=== PATIENT | male | born 1945 | race Caucasian/White ===

== ENCOUNTER 2022-12-02 12:16 | Emergency (ER) | payer OTHER, SELFPAY ==
[2022-12-02 12:17] VITALS: BP 102/71; PULSE 67; RESP 20; TEMP 35.8; O2SAT 98; BMI 25.2
[2022-12-02] MEDS: Heparin Injection (Vial) 5,000 UNIT/ML VIAL 4000 UNIT IV (12:19)
[2022-12-02] MEDS: TICAGRELOR 90 MG TABLET 180 MG PO (12:19)
[2022-12-02 12:21] VITALS: BP 102/71; PULSE 67; RESP 20; O2SAT 100
--- NOTE | 2022-12-02 12:22 | NURSING ---
1150 STEMI CALLED PRIOR TO ARRIVAL
--- NOTE | 2022-12-02 12:23 | NURSING ---
ICU 2 STEMI
--- NOTE | 2022-12-02 12:24 | EKG12_ITS ---
Test Reason : stemi Blood Pressure : / mmHG Vent. Rate : 067 BPM Atrial Rate : 067 BPM P-R Int : 144 ms QRS Dur : 098 ms QT Int : 426 ms P-R-T Axes : 062 -36 006 degrees QTc Int : 450 ms Normal sinus rhythm Left axis deviation ST elevation consider anterolateral injury or acute infarct ACUTE NM / STEMI Abnormal ECG No previous ECGs available Confirmed by PETR RENAE, DASHA ([id number]), field map editor JON HILLIARD ([id number]) on 12/12/2022 7:34:21 AM Referred By: Branden Saucedo Confirmed By:DASHA HUMPHREYS MD
--- NOTE | 2022-12-02 12:25 | EDS_ITS ---
HPI History of Present Illness Chief Complaint: Chest Pain Narrative Narrative: 77-year-old male past medical history of DVT/PE on Coumadin presents with chest pain that began approximately an hour ago. He states he went outside to feed the animals, and developed chest pain. According to EMS he came back inside, sat underneath a fan and was given cayenne pepper to see if it would help with his chest pain. He took nitroglycerin that was over 5 years old without relief of his symptoms. He became diaphoretic while he was at home. EMS administered fentanyl and Zofran. He was also administered 4 baby aspirin and nitroglycerin per EMS. Prehospital EKG shows ST elevation anterior laterally with 4 to [address] elevation mainly in V2 and V3 with reciprocal changes inferiorly. Code STEMI was activated prior to arrival. [facility] Medical History (Updated 12/02/22 @ 12:29 by Mandie Leon) Clotting disorder Allergy/AdvReac Type Severity Reaction Status Date / Time No Known Allergies Allergy Verified 12/02/22 12:25 Social History Smoking Status: Never smoker ROS ROS ED ROS Narrative Constitutional: No fever, no chills. Positive diaphoresis. HEENT: No sore throat. Mild neck pain. No loss of vision. No rhinorrhea. Cardiovascular: Positive chest pain. No palpitations. No pedal edema. Respiratory: No cough, no shortness of breath. Abdominal: No abdominal pain. No nausea. No vomiting. Genitourinary: No dysuria. No hematuria. Musculoskeletal: No myalgias. No arthralgias. Neurologic: No headaches. No dizziness. No lightheadedness. Skin: No rash. No change in color. Psychiatric: No depression. No anxiety. EXAM Physical Exam Narrative Exam Narrative: Afebrile. Vital signs noted. HEENT: Normocephalic. Atraumatic. PERRL, EOMI. Neck soft and supple. No point tenderness or step off. Cardiovascular: Regular rate and rhythm. No murmurs, rubs, or gallops appreciated. Respiratory: No tachypnea. Lungs clear to auscultation bilaterally. Gastrointestinal: Abdomen soft, nontender, with normoactive bowel sounds. No rebound or guarding. Neurological: Awake. Alert. Nonfocal, nonlateralizing. Skin: No rash. Normal color. No pallor. Musculoskeletal: No pedal edema. Full range of motion extremities. Const Vital Signs: 12/02/22 12:17 12/02/22 12:21 Temperature 96.4 F L Temperature Source Temporal Pulse Rate 67 Respiratory Rate 20 H 20 H Blood Pressure 102/71 102/71 Blood Pressure Mean 81 Pulse Ox 98 Oxygen Delivery Method Nasal Cannula Oxygen Flow Rate (L/min) 2 MDM MDM MDM Narrative Medical decision making narrative: Code STEMI was activated prehospital. EKG was obtained here in the emergency department which shows worsening ST elevation across the precordial leads with reciprocal changes inferiorly. Although the patient is on Coumadin, at the request of Dr. Saucedo with cardiology he will be given a 4000 unit bolus of heparin and Brilinta 180 mg orally. He will be taken to the It Technical Support Specialist for emergent percutaneous intervention. I discussed the patient with Dr. Gallagher for admission to the ICU status post heart catheterization. Disposition is admit in guarded condition. Management Discussion w/another healthcare provider: Hospitalist (Dr. Gallagher) and Fast Food Assistant Restaurant Manager (Dr. Saucedo, Cardiology) Critical Care Time Critical Care Time: Yes Critical care time (excluding procedures): 30-74 minutes (31), Including time spent:, Discussing w/Patient &/or Family/Corporate Recruiter, Discussing w/Consultants, Arranging Admission or Transfer and Performing Direct Patient Care at Bedside Discharge Plan Triage Chief Complaint: Chest Pain ED Provider: Michael Paulson Dx/Rx/DC Orders Primary Care Provider: Isaias Cisneros Referrals: Isaias Cisneros MD [Primary Care Provider] -
[2022-12-02 12:27] VITALS: BP 102/71; PULSE 64; RESP 20; O2SAT 100
--- NOTE | 2022-12-02 12:28 | HP.PCM.HOS_ITS ---
HPI - General HPI Narrative LANA BROOKE, is a 77 M who presents [facility] Allergy/AdvReac Type Severity Reaction Status Date / Time No Known Allergies Allergy Verified 12/02/22 12:25 Vital Signs Vital Signs Vital Signs: 12/02/22 12:17 12/02/22 12:21 Temperature 96.4 F L Temperature Source Temporal Pulse Rate 67 Respiratory Rate 20 H 20 H Blood Pressure 102/71 102/71 Blood Pressure Mean 81 Pulse Ox 98 Oxygen Delivery Method Nasal Cannula Oxygen Flow Rate (L/min) 2 Weight Weight: 79.9 kg Body Mass Index (BMI) 25.2
[2022-12-02 12:37] LABS: Absolute Neutrophil Count 19.4 X10^3/uL (2.0-7.7); Basophil# 0.36 X10^3/uL; Basophil% 1.6 % (0-1); Eosinophils% 1.7 % (0-5); Hematocrit 43.5 % (40-54); Hemoglobin 11.9 g/dL (13.0-16.5); Lymphocyte % 7.4 % (19-41); Mean Corp Hgb Conc 27.4 g/dL (32-36); Mean Corpuscular Volume 62.2 fL (80-94); Monocyte# 0.82 X10^3/uL; Monocyte% 3.6 % (0-10); NRBC Flagged by Analyzer 0 % (0-5); Neutrophil % 84.9 % (47-70); POSITIVE MORPHOLOGY YES; Platelet Count 370 K/mm3 (150-450); RBC Distribution Width CV 24.4 % (11.6-14.6); RBC Distribution Width SD 48.3 fl (35.1-43.9); Red Blood Count 6.99 M/mm3 (4.6-6.2); White Blood Count 22.9 K/mm3 (4.4-11.0)
[2022-12-02 12:39] LABS: Differential Indicated SCAN CRITERIA MET
--- NOTE | 2022-12-02 12:43 | ED.RN ---
THIS RN CALLED ICU AND GAVE REPORT TO ANA HOPE. AT 1243.
[2022-12-02 12:49] LABS: Anion Gap 5 (5-15); BUN 29 mg/dL (7-18); BUN/Creat Ratio 20.7 RATIO (10-20); Calcium,Total 8.5 mg/dL (8.5-10.1); Chloride 110 mmol/L (98-107); EST Glomerular Filtration Rate 52 mL/min (>60); Est Glom Filt Rate - Afr Amer 63 mL/min (>60); Estimated Creatinine Clearance 44.18 ml/min; Glucose 122 mg/dL (74-106); Sodium Level 140 mmol/L (136-145); Troponin-I HS 96 pg/mL (3.0-78.0)
[2022-12-02 12:52] LABS: International Normalized Ratio 2.1; Partial Thromboplast Time 33.7 Seconds (24.1-36.2); Prothrombin Time (Protime)PT. 23.7 SECONDS (11.7-14.9)
[2022-12-02 14:06] LABS: Anisocytosis 2+; Platelet Estimate SLT INC (ADEQ)
[2022-12-02 14:07] LABS: Hypochromasia 2+; Microcytosis 1+; Ovalocyte 1+; Poikilocytosis 1+
[2022-12-02 14:09] LABS: ACT Activated Clotting Time 221 sec (74-137)
--- NOTE | 2022-12-02 15:14 | PCIREPORT_ITS ---
PCI Cardiac Cath Report PCI Report: PCI cardiac cath report STEMI anterior With occluded proximal LAD; 1. Moderate sedation 2. Selective left coronary angiography 3. Selective right cholangiography 4. Successful PCI of the culprit proximal LAD occluded with ALEXANDRA 0 flow, predilatation, using escalating technique of the balloon Using 2 x 15 mm balloon followed by 2.5 x 15 mm followed by placement of drug- eluting stent 2.5 x 22 mm resolute [place] Postdilated with 2.75 x 15 mm NC balloon. Patient had single episode of A-fib converted to sinus with shock x1 No further episode of V-fib or V. tach noted and patient does not require amiodarone. And achievement of 10-20% post PCI stenosis and maintenance of ALEXANDRA-3 flow post PCI.] Heavily calcified mid LAD requiring longer time in the Assisted Living Housekeeper With the technique of guide liner and changing the plan to access from the right common femoral artery. 5. Access from the right radial using 6 Barbadian sheath. 6. Access from the right common femoral artery using 6 Barbadian sheath 7. Selective right common femoral artery angiography 8. Placement of Perclose to close the right common femoral artery arteriotomy site. Right radial sheath was left in place as patient urgently transferred to [facility]. Preprocedure diagnosis; 77-year-old patient presented with severe retrosternal chest pain and had been today while he was outside his house It was nauseated with severe retrosternal chest pain no specific radiation Patient brought to the ER at [facility] with EMS service. Noted patient had significant elevated ST segment in the anterolateral lead with lead I, aVL and V1 to V6. With a clinical diagnosis of STEMI with occluded LAD. Patient has no prior cardiac history However he was on Coumadin for DVT with INR on this presentation 2.1 Also had renal insufficiency with elevated creatinine. Consent; Risk and benefit of procedure explained detail patient agreed to proceed informed consent obtained. Diagnostic and interventional equipment used 1. 6 Barbadian sheath, right radial artery 2. 6 Barbadian sheath right common femoral artery 3. Diagnostic catheter 5 Barbadian JL 3.5, 5 Barbadian JR4 4. Interventional guide catheter 6 Barbadian JL 3.5, 6 Barbadian JL 4, guide liner 6 Barbadian. 5. 0.014 180 cm run-through extra floppy straight guidewire 6. 0.035 to 60 cm J exchange wire 7. 2 x 15 mm balloon 8. 2.5 x 50 mm Emerge balloon 9. 2.5 x 22 mm drug-eluting stent resolute [place]. 10. 2.75 x 15 mm NC balloon. Medication used in the Assisted Living Housekeeper Heparin IV 2. Brilinta was given in the ER 180 mg 3. Aspirin was given by the EMS service. Patient today took his Coumadin and INR result is 2.1 Procedure in detail; 76-year-old patient who presented with severe retrosternal chest pain brought by the EMS to [facility] ER I saw the patient and evaluated in the ER he still having severe retrosternal chest pain and review all his current medication and Patient was taken immediately to the Assisted Living Housekeeper for a STEMI/LAD with significant ST elevation noted in the LAD distribution We will proceed with a diagnostic and use GuideLiner as a support And eventually we were able to place a 2.5 x 22 mm drug-eluting stent, resolute [place], postdilated with 2.75 x 15 mm NC balloon And achieve ALEXANDRA-3 flow in the LAD. Symptoms of chest pain improved. Patient remained stable hemodynamically. ST segment elevation resolved. Patient was hypotensive and had an episode of V-fib prior to the PCI shocked 1 time in the Assisted Living Housekeeper And started on Yaron-Synephrine using 5 Barbadian JL 3.5 advanced ascending aorta cannulated the left main without difficulty multiple views of the left main system obtained Identified the culprit as occluded proximal LAD The new proceed with 6 Barbadian JR4 was [place] cannulated the RCA and multiple views of the RCA obtained Following this we proceed with interventional plan which is a complex plan due to the heavily calcified proximal and mid LAD with difficulty of passing the stent or the balloon 2.5 Therefore we proceed with right common femoral artery groin and proceed with the 6 Barbadian JL 4 Finding of coronary angiography 1. Left main is normal angiographically, bifurcating into LAD and left circumflex 2. Left anterior descending artery occluded proximally. Post PCI and stent of LAD is a large vessel reach all the way to the apex Abundant septal branches. 3. Left circumflex moderate-sized vessel with no significant atherosclerosis 4. RCA large dominant with nonobstructive proximal and mid round 10-20%. Hemodynamic regular 5 Barbadian JR4 diagnostic catheter was placed in the left ventricle and the patient went into V-fib requiring shock x1. Catheter was pulled back with no further recording of LVEDP. Cardiac care plan and recommendation: 1. Due to the calcified mid LAD in a patient who is very critical and being on Coumadin with calcified proximal/mid LAD And also concerned about the risk of in-stent thrombosis, I transferred the patient to [facility] cardiac center for observation where the night I discussed with the glassware maker demonstrator Patient was stable symptoms of chest pain improved and ST segment elevation resolved The blood pressure is a stable. No complication in the Assisted Living Housekeeper Branden Saucedo MD,FACC,[facility]
--- NOTE | 2022-12-02 15:34 | PCM.CONS.C ---
Assessment & Plan Assessment/Plan (1) ST elevation (STEMI) myocardial infarction: (2) Chest pain: PLAN: Plan 77-year-old patient With a large anterior AL/STEMI with cardiogenic shock in the ER his blood pressure was low systolic around 90 mmHg Symptoms started this morning with severe retrosternal chest pain, nauseated and given some Zofran heparin as well as Brilinta in the ER Patient was taken to the emergency to the Senior Policy Advisor Finding of cardiac catheterization identified the culprit lesion as occluded proximal LAD Underwent complex PCI of the proximal?mid LAD, heavily calcified present with difficulty of placing the drug-eluting stent Requiring use of guide liner as well as escalation of the wire from smaller to millimeter to 2.5 mm followed by the placement of drug-eluting stent successfully. And placed a drug-eluting stent 2.5 x 22 mm postdilated with 2.75 NC balloon [address] elevation and improvement of symptoms of chest pain ALEXANDRA-3 flow noted in the LAD Left main, left circumflex and RCA had no significant atherosclerosis. Patient transferred to a tertiary cardiac center [facility] as he was very unstable with large STEMI and cardiogenic shock His blood pressure remained stable on inotropic support he was given Yaron-Synephrine/norepinephrine/phenylephrine Patient transferred to [facility] for observation and monitoring Cardiac care plan recommendations; Patient will need project manager/design manager and take treated with Brilinta 90 mg twice daily in addition to low-dose aspirin for 1 year 1. Patient had history of DVT and has been on warfarin no enough information regarding the duration of need for the warfarin 2. Patient if he remained stable can follow-up with cardiology team at [facility]. . HPI Consult Data Date of Consult: 12/02/22 HPI Narrative Reason for Consultation: STEMI/large anterior AL HPI Narrative: LANA BROOKE, is a 77 M who presents [facility] Medical History (Updated 12/02/22 @ 12:31 by Michael Paulson MD) Clotting disorder Allergy/AdvReac Type Severity Reaction Status Date / Time No Known Allergies Allergy Verified 12/02/22 12:25 Social History Smoking Status: Never smoker ROS ROS Narrative 14 point review of system is unremarkable Apart from the current presentation with symptoms of severe retrosternal chest pain Clinical diagnosis of STEMI/large anterior AL. Physical Exam Cardio Cardio Narrative: Patient seen and examined in the ER along with ER physician Severe retrosternal chest pain Review all his current medication patient was on Coumadin he took warfarin this morning Patient was given heparin, aspirin as well as Brilinta Hypertensive systolic blood pressure 90 diastolic around 60 with cardiogenic shock Cardiac rhythm normal sinus Cardiovascular exam S1-S2 regular Chest exam is clear to auscultation. Risk Stratification Risk Stratification Applicable: Yes Age >/= 65: Yes >/= 3 CAD Risk Factors (HTN, HLD, DM, family hx of CAD, or current smoker): Yes Aspirin Use in the Past 7 Days: Yes Severe Angina (>/= episodes in 24 hours): Yes EKG ST Changes >/= 0.5mm: Yes Positive Cardiac Marker: Yes ALEXANDRA Risk Stratification Score: 6 ALEXANDRA % Risk: 41% Risk Objective Data Vital Signs: Vital Signs Temp Pulse Resp BP Pulse Ox O2 Del Method O2 Flow Rate 96.4 F L 64 20 H 102/71 100 Nasal Cannula 2 12/02/22 12:17 12/02/22 12:27 12/02/22 12:27 12/02/22 12:27 12/02/22 12:27 12/02/22 12:29 12/02/22 12:29 Oxygen Flow Rate (L/min) 2 Oxygen Delivery Method Nasal Cannula Weight: 176 lb 2.389 oz Body Mass Index (BMI) 25.2 Lab / Micro Data 12/02/22 12:20 12/02/22 12:20 Labs: Laboratory Results - last 24 hr 12/02/22 12:20: WBC 22.9 H, RBC 6.99 H, Hgb 11.9 L, Hct 43.5, MCV 62.2 L, MCH 17.0 L, MCHC 27.4 L, RDW Std Deviation 48.3 H, RDW Coeff of Orly 24.4 H, Plt Count 370, Immature Gran % (Auto) 0.800, Neut % (Auto) 84.9 H, Lymph % (Auto) 7.4 L, [place] % (Auto) 3.6, Eos % (Auto) 1.7, Baso % (Auto) 1.6 H, Absolute Neuts (auto) 19.4 H, Absolute Lymphs (auto) 1.70, Nucleated RBC % 0, Platelet Estimate SLT INC, Hypochromasia 2+, Poikilocytosis 1+, Anisocytosis 2+, Microcytosis 1+, Ovalocytes 1+, PT 23.7 H, INR 2.1, APTT 33.7, Sodium 140, Potassium 4.0, Chloride 110 H, Carbon Dioxide 25.0, Anion Gap 5, BUN 29 H, Creatinine 1.40 H, Estim Creat Clear Calc 44.18, Est GFR (MDRD) Af Amer 63, Est GFR (MDRD) Non-Af 52 L, BUN/Creatinine Ratio 20.7 H, Glucose 122 H, Calcium 8.5, Troponin I High Sens 96 H 12/02/22 12:42: Activated Clotting Time 221 H Cardiology Labs/Tests 12/02/22 12:20: WBC 22.9 H, RBC 6.99 H, Hgb 11.9 L, Hct 43.5, MCV 62.2 L, MCH 17.0 L, MCHC 27.4 L, Plt Count 370, Immature Gran % (Auto) 0.800, Neut % (Auto) 84.9 H, Lymph % (Auto) 7.4 L, [place] % (Auto) 3.6, Eos % (Auto) 1.7, Baso % (Auto) 1.6 H, Absolute Neuts (auto) 19.4 H, Nucleated RBC % 0, PT 23.7 H, INR 2.1, APTT 33.7, Sodium 140, Potassium 4.0, Chloride 110 H, Carbon Dioxide 25.0, Anion Gap 5, BUN 29 H, Creatinine 1.40 H, Est GFR (MDRD) Af Amer 63, Est GFR (MDRD) Non-Af 52 L, BUN/Creatinine Ratio 20.7 H, Glucose 122 H, Calcium 8.5 Rhythm: EKG: ECHO: Stress Test: Cardiac Cath: PCI: CT Surgery: Holter monitor: EPS: PPM: CXR: Chest CT Scan:
--- NOTE | 2022-12-04 09:04 | CRPHASE1_ITS ---
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 Our purpose is to help you have a full recovery and achieve the goals you set for yourself. Over the years many of our patients have returned to activities they assumed they would never do again! We can help restore your confidence and motivation to make lifestyle changes that can have a significant impact on your health and quality of life! We can help answer questions and concerns you may have about exercise, lifestyle, medications, diet, stress and anxiety which are common following a hospitalization. WE monitor ECG and vital signs during exercise and discuss your progress with you and report to your physician(s). Cardiac Rehab is proven to help reduce readmissions, improve functional capacity and lower recurrence of problems with your heart. Our Cardiac Rehab program is Certified by the [place] Association of Cardio-Vascular and Pulmonary Rehabilitation (AACVPR) and Accredited by the [place] College of Cardiology through our [facility]. You can contact us at . We invite you to call us with your questions or to get started in our program. If you have other questions or concerns be sure to ask your physician/provider during your follow-up visit. WE look forward to seeing you!
== END 2022-12-02 12:30 | disposition home or self-care (01) ==
PROVIDERS: Emergency Provider Emergency Medicine; PCP Family Medicine; Referring Provider Internal Medicine Interventional Cardiology; Visit Provider Emergency Medicine
DX: I21.09 ST elevation (STEMI) myocardial infarction involving other coronary artery of anterior wall (principal); Z79.01 Long term (current) use of anticoagulants; Z95.5 Presence of coronary angioplasty implant and graft; Z86.718 Personal history of other venous thrombosis and embolism
CPT/HCPCS: 80048; 84484; 85025; 85347; 85610; 85730; 92941; 93005; 93454; 96374; 99152; 99284; J7030; J7040; J7050; Q9967; A4216; C1725; C1760; C1769; C1874; C1887; C1894; C9606

== ENCOUNTER 2022-12-22 15:42 | Inpatient (IN) | payer OTHER, SELFPAY ==
[2022-12-22] VITALS (9 sets, daily range): BP systolic 108–140; BP diastolic 61–74; PULSE 63–82; RESP 15–18; TEMP 36.2–36.6; O2SAT 96–98; BMI 23.9; BMI 24.3
--- NOTE | 2022-12-22 16:03 | EKG12_ITS ---
Test Reason : SOB Blood Pressure : / mmHG Vent. Rate : 069 BPM Atrial Rate : 069 BPM P-R Int : 168 ms QRS Dur : 086 ms QT Int : 460 ms P-R-T Axes : 046 -45 120 degrees QTc Int : 492 ms Normal sinus rhythm Left anterior fascicular block Anteroseptal infarct , age undetermined T wave abnormality, consider lateral ischemia Abnormal ECG Confirmed by PETR RENAE, DASHA ([id number]), supervising film or videotape editor JON HILLIARD ([id number]) on 12/25/2022 1:09:36 PM Referred By: Confirmed By:DASHA HUMPHREYS MD
--- NOTE | 2022-12-22 16:04 | EDS_ITS ---
HPI History of Present Illness Chief Complaint: Shortness of Breath Informant: patient, spouse/S.O. and family Narrative Narrative: Patient presents with dyspnea. Patient had a significant heart attack on 02 December of this year. He had a stent done here but it was a severely calcified vessel so he was transferred up to [facility] for further observation. When there he developed more dyspnea. He had imaging that showed pulmonary edema and was placed on Lasix. There was also suspicion of pneumonia so he was started on antibiotics and finished his course of doxycycline. He also had hemoptysis with this and was treated with TXA and that stopped. He has had dyspnea ever since this. He is still coughing but no sputum production and he is no longer having hemoptysis since he was treated. He is on Coumadin. He has no known weight gain. No peripheral edema. He is not having chest pain. He saw retail gift card merchandising for this and was started on hydroxyzine as it was thought there was a component of anxiety. But he states that does not seem to help a lot. He states his appetite is just a little bit down but he still eating and drinking. [facility] Medical History Arteriosclerosis of coronary artery in patient with history of myocardial infarction (12/02/22) Cardiogenic shock (12/02/22) Clotting disorder Allergy/AdvReac Type Severity Reaction Status Date / Time amoxicillin Allergy Rash Verified 12/22/22 15:44 Surgical History Stented coronary artery (12/02/22) Social History Smoking Status: Never smoker ROS ROS ED Constitutional Constitutional ED: Denies chills, fever(s), sweats or weight loss Eyes Eyes: Denies blurry vision ENT ENT ED: Denies rhinorrhea or sore throat Cardiovascular Cardiovascular: Denies chest pain, palpitations or racing heartbeat Respiratory/Chest Respiratory/Chest: Reports cough and dyspnea Gastrointestinal Gastrointestinal: Denies melena, nausea or vomiting Genitourinary Genitourinary ED: Denies hematuria Musculoskeletal Musculoskeletal: Denies arthralgias Integumentary Denies rash Neurologic Neurologic: Denies headache(s) Endocrine Endocrinology: Denies polydipsia or polyuria Hematologic/Lymphatic Hematologic/Lymphatic: Reports easy bleeding and easy bruising Allergic/Immunologic Allergic/Immunologic ED: Denies urticaria EXAM Physical Exam Narrative Exam Narrative: CONSTITUTIONAL: Patient is nontoxic in appearance. The patient looks comfortable. Work of breathing looks normal. HEENT: No notable trauma. Mucous membranes moist. EYES: No conjunctival injection. No proptosis. NECK:No JVD seen. No stridor. CARDIOVASCULAR: Regular rate. Regular rhythm. No notable murmur. No JVD. He does not sound irregular. RESPIRATORY: No respiratory distress. Breathing is unlabored. No wheezes. No rhonchi. He does have a few crackles at the bases. No pain with a deep breath. No coughing while I am in the room. Oxygen level is normal at 98% on room air showing no hypoxia while sitting in the bed. GASTROINTESTINAL: Not distended. Bowel sounds are normal. No tenderness. No guarding. No rebound. No palpable mass. No bruit is heard. GENITOURINARY: No tenderness over the bladder. No CVA tenderness. MUSCULOSKELETAL: Atraumatic. No notable peripheral edema. No cord. No tenderness along the deep venous system. No asymmetry. No distended veins. NEUROLOGICAL: Patient is alert and appropriate. No focal deficit noted. SKIN: No noted rashes. No diaphoresis. No notable pallor. PSYCHIATRIC: Patient is calm. Mood is appropriate. Const Vital Signs: 12/22/22 15:43 12/22/22 15:44 12/22/22 16:14 Temperature 97.6 F L Temperature Source Temporal Pulse Rate 67 63 Respiratory Rate 18 16 Respiratory Effort Normal Non-Labored Respiratory Depth Normal Respiratory Pattern Normal Normal Blood Pressure 123/74 H Blood Pressure Mean 90 Pulse Ox 98 Oxygen Delivery Method Room Air Room Air MDM MDM MDM Narrative Medical decision making narrative: Management interpretation the patient's chest x-ray does show some effusions and increased markings base. Clinically this is more consistent with CHF than pneumonia. Final reading is similar. Patient's white count is up at 22,000 but it was up before. He is not having fevers. Hemoglobin is good. Platelets are just a little up. Patient's electrolytes show mild renal dysfunction but close to baseline. Patient's INR is slightly supratherapeutic at 4.4 but there is no clinical bleeding. Patient's troponin is high at 491 and this is a little over 2 weeks after his [place]. Patient is to be in PE as a levator it at 947 consistent with some degree of congestive heart failure. I discussed the case with cardiology, Dr. Ring. He agrees the patient should probably be brought in overnight. We will start diuresis. We will get echocardiogram. I have hospitalist on page. Lab Data Attestation: I reviewed the patient's lab results. Labs: Laboratory Results - last 24 hr 12/22/22 16:11 WBC 22.1 H RBC 6.65 H Hgb 11.7 L Hct 41.2 MCV 62.0 L MCH 17.6 L MCHC 28.4 L RDW Std Deviation 51.1 H RDW Coeff of Orly 25.2 H Plt Count 509 H MPV TNP Immature Gran % (Auto) 0.900 Neut % (Auto) 88.3 H Lymph % (Auto) 5.[address] [place] % (Auto) 2.7 Eos % (Auto) 1.4 Baso % (Auto) 1.3 H Absolute Neuts (auto) 19.5 H Absolute Lymphs (auto) 1.19 Nucleated RBC % 0 Differential Comment SCANNED PT 43.1 H INR 4.4 H* Sodium 138 Potassium 4.4 Chloride 106 Carbon Dioxide 28.0 Anion Gap 4 L BUN 25 H Creatinine 1.49 H Estim Creat Clear Calc 41.51 Est GFR (MDRD) Af Amer 58 L Est GFR (MDRD) Non-Af 48 L BUN/Creatinine Ratio 16.8 Glucose 97 Calcium 8.8 Troponin I High Sens 491 H* B-Natriuretic Peptide 947.8 H Radiography Diagnostic Testing: Clinical Impression(s) from Imaging Studies Chest X-Ray 12/22/22 16:35 IMPRESSION: There are bilateral pleural effusions. There are bilateral infiltrates. Electronically Signed: Anthony Caputo MD at 17:08 EDT , EKG Initial EKG: Comments: I independent her potation the patient's EKG shows a normal sinus rhythm with overall rate of 69. No ventricular ectopy. There is deep T wave inversion and Q waves anteriorly consistent with his recent anterior WY. But no acute ST elevation or depression. This is different than his EKG of 02 December but during that EKG he had an ST elevation WY and this does show what could be expected progress. Discharge Plan Triage Chief Complaint: Shortness of Breath ED Provider: Pedro Oliveira Dx/Rx/DC Orders Clinical Impression: Congestive heart failure, Dyspnea, Recent ST elevation myocardial infarction (STEMI), Non-ST elevation WY (NSTEMI), Warfarin-induced coagulopathy Primary Care Provider: Isaias Cisneros Referrals: Isaias Cisneros MD [Primary Care Provider] - Disposition Disposition: Acute Care Hospital [facility]
[2022-12-22] MEDS: Ipratropium/Albuterol Sulfate 3 ML AMPUL.NEB INHALATION (16:14)
[2022-12-22 16:24] LABS: Absolute Lymphocyte Count 1.19 X10^3/uL (0.83-4.51); Absolute Neutrophil Count 19.5 X10^3/uL (2.0-7.7); Basophil# 0.28 X10^3/uL; Basophil% 1.3 % (0-1); Eosinophil# 0.32 X10^3/uL; Eosinophils% 1.4 % (0-5); Hematocrit 41.2 % (40-54); Hemoglobin 11.7 g/dL (13.0-16.5); Lymphocyte # 1.19 X10^3/ul (0.83-4.51); Lymphocyte % 5.4 % (19-41); Mean Corp Hgb Conc 28.4 g/dL (32-36); Mean Corpuscular Hgb 17.6 pg (27.0-32.0); Monocyte# 0.59 X10^3/uL; Monocyte% 2.7 % (0-10); NRBC Flagged by Analyzer 0 % (0-5); Neutrophil # 19.54 X10^3/uL (2.7-7.7); Neutrophil % 88.3 % (47-70); POSITIVE MORPHOLOGY YES; Platelet Count 509 K/mm3 (150-450); RBC Distribution Width CV 25.2 % (11.6-14.6); RBC Distribution Width SD 51.1 fl (35.1-43.9); Red Blood Count 6.65 M/mm3 (4.6-6.2); White Blood Count 22.1 K/mm3 (4.4-11.0)
[2022-12-22 16:25] LABS: Differential Indicated SCAN CRITERIA MET
[2022-12-22 16:32] LABS: Prothrombin Time (Protime)PT. 43.1 SECONDS (11.7-14.9)
--- NOTE | 2022-12-22 16:35 | RAD_ITS ---
STUDY: XR Chest 2 Views 12/22/2022 4:35 PM REASON FOR EXAM: Male, 77 years old. SOB COMPARISON: None TECHNIQUE: XR Chest 2 Views FINDINGS: There are bilateral pleural effusions. There are bilateral infiltrates. Enlarged heart size. Normal mediastinum. Normal jodi. Prominent appearing increased interstitial lung markings. Normal visualized pulmonary arteries. There is atherosclerotic calcification of the aortic arch with tortuosity. There are diffuse degenerative changes of the visualized thoracic spine. There is degenerative osteoarthritis of the bilateral shoulders. There are no acute findings of the upper abdomen. RAD/Chest PA and Lateral IMPRESSION: There are bilateral pleural effusions. There are bilateral infiltrates. Electronically Signed: Anthony Caputo MD at 17:08 EDT ,
[2022-12-22 16:43] LABS: International Normalized Ratio 4.4
[2022-12-22 16:48] LABS: Anion Gap 4 (5-15); BUN 25 mg/dL (7-18); BUN/Creat Ratio 16.8 RATIO (10-20); Calcium,Total 8.8 mg/dL (8.5-10.1); Chloride 106 mmol/L (98-107); Creatinine, Serum 1.49 mg/dL (0.70-1.30); EST Glomerular Filtration Rate 48 mL/min (>60); Est Glom Filt Rate - Afr Amer 58 mL/min (>60); Estimated Creatinine Clearance 41.51 ml/min; Glucose 97 mg/dL (74-106); Potassium 4.4 mmol/L (3.5-5.1); Sodium Level 138 mmol/L (136-145); Troponin-I HS 491 pg/mL (3.0-78.0)
[2022-12-22 16:56] LABS: Differential Comment SCANNED
[2022-12-22 16:57] LABS: BNP,B-Type NATRIURETIC PEPTIDE 947.8 pg/mL (0-100)
[2022-12-22] MEDS: Furosemide 40 MG/4 ML Vial IV (17:39)
--- NOTE | 2022-12-22 17:41 | NURSING ---
RODRI COLEY CHF, ELEVATED TROP
--- NOTE | 2022-12-22 18:08 | HP.PCM.HOS_ITS ---
[facility] Date of Admission: 12/22/22 Date of Service: 12/22/22 Chief Complaint: Shortness of breath for few days intermittently mainly on exertion but sometimes at rest [facility] Narrative LANA BROOKE, is a 77 M who was transferred to [facility] after found to have anterior STEMI and cardiogenic shock in the ER, blood pressure low systolic 90s and had high risk complex PCI/stent of proximal mid LAD, heavily calcified vessel and then was transferred to [facility] on inotropic support. There he has treated for pneumonia and had some hemoptysis being on blood thinner therefore take cinnamic acid was given. Patient is still has cough mainly dry. At home, for last 1 week patient feels shortness of breath on exertion and occasionally even at rest. He sleeps in the recliner and feels he will get short of breath if he lays flat. Denies PND. He states he has been checking his weight and did not show increase in weight. Patient is on aspirin, Plavix and warfarin for history of DVT/PE and polycythemia vera. In ED his first troponin was found to be elevated along with BNP. Vitals in normal range. No hypoxia or tachypnea. Chest x-ray reviewed and shows hilar ejection increased interstitial lung markings and small bilateral pleural effusion. Twelve-lead EKG individually reviewed and shows normal sinus rhythm, LAFB 69 bpm, LAD. Did not worsen reviewed 20 V4. Previous EKG of December 02, [address] elevation V1 to V5 with 13% in lead II and aVF as mentioned above [facility] Medical History Arteriosclerosis of coronary artery in patient with history of myocardial infarction (12/02/22) Cardiogenic shock (12/02/22) Clotting disorder Home Medications aspirin 81 mg tablet,delayed release (Adult Aspirin Regimen) 81 mg PO DAILY 12/22/22 [History Last Taken Unknown] atorvastatin 80 mg tablet 80 mg PO DAILY 12/22/22 [History Last Taken Unknown] clopidogrel 75 mg tablet 75 mg PO DAILY 12/22/22 [History Last Taken Unknown] folic acid 1 mg tablet 1 mg PO DAILY 12/22/22 [History Last Taken Unknown] guaifenesin 1,200 mg tablet, extended release 12 hr (Mucinex) 600 mg PO BID 12/22/22 [History Last Taken Unknown] hydroxyzine HCl 25 mg tablet 25 mg PO Q6H PRN anxiety 12/22/22 [History Last Taken Unknown] metoprolol tartrate 50 mg tablet (Lopressor) 12.5 mg PO BID 12/22/22 [History Last Taken Unknown] warfarin 5 mg tablet 5 mg PO DAILY 12/22/22 [History Last Taken Unknown] Allergy/AdvReac Type Severity Reaction Status Date / Time amoxicillin Allergy Rash Verified 12/22/22 15:44 Surgical History Stented coronary artery (12/02/22) Social History Smoking Status: Never smoker ROS ROS Narrative Constitutional: Reports fatigue and weakness. No fever. HEENT: Reports systems reviewed and no addt'l complaints, except as documented Respiratory/Chest: Cough from previous admission as described in HPI. As described in HPI CVS: No new chest pain or pressure. Gastrointestinal: Denies coffee ground emesis, hematemesis or vomiting Genitourinary: Denies burning urination or new urinary tract symptoms Musculoskeletal: Denies acute joint pain or limited range of motion. No acute injury Neurologic: Denies seizure-like symptoms. skin: Multiple lumps in the skin chronic Endocrinology: Reports systems reviewed and no addt'l complaints, except as documented Hematologic/Lymphatic: Reports systems reviewed and no addt'l complaints, except as documented Rest 14 ROS are negative except as mentioned in HPI Vital Signs Vital Signs Vital Signs: 12/22/22 15:43 12/22/22 15:44 12/22/22 16:14 Temperature 97.6 F L Temperature Source Temporal Pulse Rate 67 63 Respiratory Rate 18 16 Respiratory Effort Normal Non-Labored Respiratory Depth Normal Respiratory Pattern Normal Normal Blood Pressure 123/74 H Blood Pressure Mean 90 Pulse Ox 98 Oxygen Delivery Method Room Air Room Air 12/22/22 17:38 12/22/22 17:37 Temperature 97.2 F L Temperature Source Temporal Pulse Rate 66 64 Respiratory Rate 15 17 Respiratory Effort Respiratory Depth Respiratory Pattern Blood Pressure 108/61 108/61 Blood Pressure Mean 76 76 Pulse Ox 96 96 Oxygen Delivery Method Room Air Room Air Weight Weight: 167 lb Body Mass Index (BMI) 23.9 Physical Exam Narrative General: Alert, Oriented x3, Cooperative HEENT: Atraumatic, PERRLA, EOMI, Normocephalic Oral: Oral mucosa dry. No Gingival or Mucosal Lesions/ Ulcerations Neck: Supple, No JVD, Negative Carotid Bruits Lungs: Air entry diminished in bilateral lung bases. Bilateral lower lung joya coarse crepitations present. No hypoxia/tachypnea Cardiovascular: Regular rate, Regular Rhythm, Normal S1, Normal S2, soft systolic murmur over LLSB Abdomen: Bowel Sounds Present, Soft, Non Tender, Non-Distended : No renal angle tenderness. No suprapubic tenderness. Extremities: Chronic left ankle edema from fracture in 1980s. Subtle edema in right ankle, Capillary Refill Less than 3 Seconds Skin: Multiple subcutaneous fatty lumps/multiple lipomas Musculoskeletal: No Tenderness to Palpation of Joints or Extremities. ROM int act and full. Neurological: Cranial nerves II-XII grossly intact, DTR 2+/4. No acute focal neurological deficit. Psych/Mental Status: Normal Affect, Appropriate. Results Lab / Micro Data 12/22/22 16:11 12/22/22 16:11 Labs: Laboratory Results - last 24 hr 12/22/22 16:11: WBC 22.1 H, RBC 6.65 H, Hgb 11.7 L, Hct 41.2, MCV 62.0 L, MCH 17.6 L, MCHC 28.4 L, RDW Std Deviation 51.1 H, RDW Coeff of Orly 25.2 H, Plt Count 509 H, MPV TNP, Immature Gran % (Auto) 0.900, Neut % (Auto) 88.3 H, Lymph % (Auto) 5.4 L, [place] % (Auto) 2.7, Eos % (Auto) 1.4, Baso % (Auto) 1.3 H, Absolute Neuts (auto) 19.5 H, Absolute Lymphs (auto) 1.19, Nucleated RBC % 0, Differential Comment SCANNED, PT 43.1 H, INR 4.4 H*, Sodium 138, Potassium 4.4, Chloride 106, Carbon Dioxide 28.0, Anion Gap 4 L, BUN 25 H, Creatinine 1.49 H, Estim Creat Clear Calc 41.51, Est GFR (MDRD) Af Amer 58 L, Est GFR (MDRD) Non-Af 48 L, BUN/Creatinine Ratio 16.8, Glucose 97, Calcium 8.8, Troponin I High Sens 491 H*, B-Natriuretic Peptide 947.8 H Radiology Impression Chest X-Ray 12/22/22 16:35 IMPRESSION: There are bilateral pleural effusions. There are bilateral infiltrates. Electronically Signed: Anthony Caputo MD at 17:08 EDT Reading Location ID and State: [facility] / [place] , Service support , Assessment & Plan Assessment/Plan (1) Acute on chronic HFrEF (heart failure with reduced ejection fraction): PLAN: Plan 1. Acute on chronic HFrEF: Patient is being admitted in PCU. Patient is started on IV Lasix 40 mg twice daily. First troponin 491. Cycle cardiac enzymes. Heart failure core measures including intake and output, fluid restriction less than 1500 mL, daily weight monitoring, kidney and electrolytes monitoring. ED physician reached out to car clerk pullman Dr. Ring. Cardiology consult Dr. Ring. Obtain 2D echo done in [facility]. On the discharge instruction from [facility], it is written patient had EF 38%. I think his cough is mainly due to CHF exacerbation therefore continue Mucinex DM. 2. Recent history of NSTEMI on December 02, 2022 complicated with cardiogenic shock and ventricular tachycardia. This time, elevated first troponin: May be due to acute myocardial injury from CHF exacerbation I doubt non-STEMI as patient does not have chest pressure or tightness like his STEMI he had in December 02 2022. Continue his cardiac medications aspirin, Plavix, beta-sahra metoprolol tartrate and atorvastatin 80 mg daily. Fasting lipid profile and TSH tomorrow AM. 3. History of DVT/PE, polycythemia vera on warfarin: Patient on warfarin 5 mg daily and will hold it as INR is supratherapeutic 4.4. 4. CKD stage IIIb probably due to cardiology visit: His BUNs/creatinine was elevated 29/1.4 on December 02, 2022. He still 25/1.49. Monitor kidney function electrolytes. Renal ultrasound ordered for tomorrow AM. VTE prophylaxis: Patient already on warfarin as mentioned above. Living will/advanced directive/end of life care: Patient does not have living will or advanced directive. His and eldest son is next of kin. After recent NSTEMI, cardiogenic shock and defibrillation he was hesitant for full code but is not decided yet. He said he wants only CPR but no intubation and ventilator, shock. I said his options are full code, DNR CC arrest with intubation or without intubation and DNRCC. After discussion of benefits/risks procedures involved with full code, DNR CC arrest and DNR CC, the patient with his family will discuss the option but for now full code. Patient does want artificial life support including intubation, tube feed, ventilator and/chest compression, central venous catheter, vasopressor and DC shock if needed Total time spent in [id number] encounter in discussion of advanced directive 17 minutes. Laboratory Results 12/22/22 16:11: WBC 22.1 H, RBC 6.65 H, Hgb 11.7 L, Hct 41.2, MCV 62.0 L, MCH 17.6 L, MCHC 28.4 L, RDW Std Deviation 51.1 H, RDW Coeff of Orly 25.2 H, Plt Count 509 H, MPV TNP, Immature Gran % (Auto) 0.900, Neut % (Auto) 88.3 H, Lymph % (Auto) 5.4 L, [place] % (Auto) 2.7, Eos % (Auto) 1.4, Baso % (Auto) 1.3 H, Absol laura Neuts (auto) 19.5 H, Absolute Lymphs (auto) 1.19, Nucleated RBC % 0, Differential Comment SCANNED, PT 43.1 H, INR 4.4 H*, Sodium 138, Potassium 4.4, Chloride 106, Carbon Dioxide 28.0, Anion Gap 4 L, BUN 25 H, Creatinine 1.49 H, Estim Creat Clear Calc 41.51, Est GFR (MDRD) Af Amer 58 L, Est GFR (MDRD) Non-Af 48 L, BUN/Creatinine Ratio 16.8, Glucose 97, Calcium 8.8, Troponin I High Sens 491 H*, B-Natriuretic Peptide 947.8 H Medications to take at Discharge aspirin 81 mg tablet,delayed release (Adult Aspirin Regimen) 81 mg PO DAILY 12/22/22 atorvastatin 80 mg tablet 80 mg PO DAILY 12/22/22 clopidogrel 75 mg tablet 75 mg PO DAILY 12/22/22 folic acid 1 mg tablet 1 mg PO DAILY 12/22/22 guaifenesin 1,200 mg tablet, extended release 12 hr (Mucinex) 600 mg PO BID 12/22/22 hydroxyzine HCl 25 mg tablet 25 mg PO Q6H PRN anxiety 12/22/22 metoprolol tartrate 50 mg tablet (Lopressor) 12.5 mg PO BID 12/22/22 warfarin 5 mg tablet 5 mg PO DAILY 12/22/22 Charges/Coding Visit Charges Inpatient E&M: 00193 Init Hosp L3 Procedures Hospitalists Procedures: 18321 Advncd Care Plan 30 Min
[2022-12-22 20:35] LABS: Troponin-I HS 518 pg/mL (3.0-78.0)
--- NOTE | 2022-12-22 20:40 | EKG12_ITS ---
Test Reason : CP Blood Pressure : / mmHG Vent. Rate : 061 BPM Atrial Rate : 061 BPM P-R Int : 150 ms QRS Dur : 090 ms QT Int : 520 ms P-R-T Axes : 047 -49 133 degrees QTc Int : 523 ms Normal sinus rhythm Low voltage QRS Left anterior fascicular block Recent anterior UT Confirmed by PETR RENAE, DASHA ([id number]), editorial clerk JON HILLIARD ([id number]) on 12/26/2022 9:45:49 AM Referred By: Confirmed By:DASHA HUMPHREYS MD
[2022-12-22] MEDS: Atorvastatin Calcium 80 MG Tablet PO (21:17)
[2022-12-22] MEDS: Metoprolol Tartrate 25 MG Tablet 12.5 MG PO (21:17)
[2022-12-22] MEDS: guaiFENesin/D-Methorphan TAB.SR.12H 1 TABLET PO (21:17)
[2022-12-23 00:26] LABS: Troponin-I HS 484 pg/mL (3.0-78.0)
[2022-12-23 03:44] VITALS: BP 128/60; PULSE 75; RESP 16; TEMP 36.8; O2SAT 97
[2022-12-23 04:04] VITALS: BMI 23.9
[2022-12-23 05:51] LABS: Absolute Lymphocyte Count 1.21 X10^3/uL (0.83-4.51); Absolute Neutrophil Count 19.2 X10^3/uL (2.0-7.7); Basophil# 0.25 X10^3/uL; Basophil% 1.1 % (0-1); Eosinophil# 0.24 X10^3/uL; Eosinophils% 1.1 % (0-5); Hematocrit 39.3 % (40-54); Hemoglobin 11.5 g/dL (13.0-16.5); Lymphocyte # 1.21 X10^3/ul (0.83-4.51); Lymphocyte % 5.6 % (19-41); Mean Corp Hgb Conc 29.3 g/dL (32-36); Mean Corpuscular Hgb 17.7 pg (27.0-32.0); Mean Corpuscular Volume 60.6 fL (80-94); Monocyte% 3.2 % (0-10); NRBC Flagged by Analyzer 0 % (0-5); Neutrophil # 19.17 X10^3/uL (2.7-7.7); Neutrophil % 88.2 % (47-70); POSITIVE MORPHOLOGY YES; Platelet Count 501 K/mm3 (150-450); RBC Distribution Width CV 25.2 % (11.6-14.6); Red Blood Count 6.49 M/mm3 (4.6-6.2); White Blood Count 21.7 K/mm3 (4.4-11.0)
[2022-12-23 06:01] LABS: Differential Indicated SCAN CRITERIA MET
[2022-12-23 06:34] LABS: Anisocytosis 2+
[2022-12-23 07:07] LABS: Anion Gap 5 (5-15); BUN 26 mg/dL (7-18); BUN/Creat Ratio 19.1 RATIO (10-20); Calcium,Total 8.7 mg/dL (8.5-10.1); Chloride 106 mmol/L (98-107); Cholesterol 56 mg/dL (200); Creatinine, Serum 1.36 mg/dL (0.70-1.30); EST Glomerular Filtration Rate 54 mL/min (>60); Est Glom Filt Rate - Afr Amer 65 mL/min (>60); Estimated Creatinine Clearance 44.04 ml/min; Glucose 92 mg/dL (74-106); High Density Lipoprotein 25 mg/dL; Phosphorus 3.3 mg/dL (2.5-4.9); Potassium 3.7 mmol/L (3.5-5.1); Sodium Level 139 mmol/L (136-145); Triglycerides 47 mg/dL; Very Low Density Lipoprotein 9 mg/dL (5-40)
--- NOTE | 2022-12-23 08:38 | PCM.PN.HOSP ---
Reason for Visit Reason for Visit: Diagnoses Acute on chronic systolic (congestive) heart failure (12/22/22) Subjective Subjective Feels good. Breathing well. No chest pain. Objective Data Objective Data Vital Signs: Vital Signs Temp Pulse Resp BP Pulse Ox O2 Del Method 36.8 C 75 16 128/60 H 97 Room Air 12/23/22 03:44 12/23/22 03:44 12/23/22 03:44 12/23/22 03:44 12/23/22 03:44 12/23/22 03:44 Oxygen Delivery Method Room Air Weight: 73.5 kg Body Mass Index (BMI) 23.9 Intake & Output: Intake and Output for Last 24 Hours 12/21/22 12/22/22 12/23/22 23:59 23:59 23:59 Intake Total 360 / 360 Output Total 1450 / 1450 Balance -1090 / -1090 Lab / Micro Data 12/23/22 05:25 12/23/22 05:25 Labs: Laboratory Results - last 24 hr 12/22/22 16:11: WBC 22.1 H, RBC 6.65 H, Hgb 11.7 L, Hct 41.2, MCV 62.0 L, MCH 17.6 L, MCHC 28.4 L, RDW Std Deviation 51.1 H, RDW Coeff of Orly 25.2 H, Plt Count 509 H, MPV TNP, Immature Gran % (Auto) 0.900, Neut % (Auto) 88.3 H, Lymph % (Auto) 5.4 L, [place] % (Auto) 2.7, Eos % (Auto) 1.4, Baso % (Auto) 1.3 H, Absolute Neuts (auto) 19.5 H, Absolute Lymphs (auto) 1.19, Nucleated RBC % 0, Differential Comment SCANNED, PT 43.1 H, INR 4.4 H*, Sodium 138, Potassium 4.4, Chloride 106, Carbon Dioxide 28.0, Anion Gap 4 L, BUN 25 H, Creatinine 1.49 H, Estim Creat Clear Calc 41.51, Est GFR (MDRD) Af Amer 58 L, Est GFR (MDRD) Non-Af 48 L, BUN/Creatinine Ratio 16.8, Glucose 97, Calcium 8.8, Magnesium 2.0, Troponin I High Sens 491 H*, B-Natriuretic Peptide 947.8 H 12/22/22 19:35: Troponin I High Sens 518 H* 12/22/22 23:50: Troponin I High Sens 484 H* 12/23/22 05:25: WBC 21.7 H, RBC 6.49 H, Hgb 11.5 L, Hct 39.3 L, MCV 60.6 L, MCH 17.7 L, MCHC 29.3 L, RDW Std Deviation 50.0 H, RDW Coeff of Orly 25.2 H, Plt Count 501 H, MPV TNP, Immature Gran % (Auto) 0.800, Neut % (Auto) 88.2 H, Lymph % (Auto) 5.6 L, [place] % (Auto) 3.2, Eos % (Auto) 1.1, Baso % (Auto) 1.1 H, Absolute Neuts (auto) 19.2 H, Absolute Lymphs (auto) 1.21, Nucleated RBC % 0, Anisocytosis 2+, Sodium 139, Potassium 3.7, Chloride 106, Carbon Dioxide 28.0, Anion Gap 5, BUN 26 H, Creatinine 1.36 H, Estim Creat Clear Calc 44.04, Est GFR (MDRD) Af Amer 65, Est GFR (MDRD) Non-Af 54 L, BUN/Creatinine Ratio 19.1, Glucose 92, Calcium 8.7, Phosphorus 3.3, Triglycerides 47, Cholesterol 56, LDL Cholesterol 22, VLDL Cholesterol 9, HDL Cholesterol 25 L, TSH 7.30 H Radiography Diagnostic Testing: Radiology Impression Chest X-Ray 12/22/22 16:35 IMPRESSION: There are bilateral pleural effusions. There are bilateral infiltrates. Electronically Signed: Anthony Caputo MD at 17:08 EDT Reading Location ID and State: [facility] / [place] , Service support , Physical Exam Const alert and no apparent distress HEENT head/scalp atraumatic Resp normal respiratory effort, no retractions, no use of accessory muscles and clear to auscultation bilaterally Cardio regular rate, regular rhythm, S1 normal heart sound and S2 normal heart sound GI normal to inspection, nondistended, normoactive bowel sounds, soft to palpation and non-tender Extremity Extremity Narrative: no edema Assessment & Plan Assessment/Plan (1) Acute on chronic HFrEF (heart failure with reduced ejection fraction): PLAN: Acute on chronic HFrEF Patient is started on IV Lasix 40 mg twice daily. Heart failure core measures including intake and output, fluid restriction less than 1500 mL, daily weight monitoring, kidney and electrolytes monitoring. Cardiology consult. DW Dr. Ring, he recommends furosemide 40 daily. Will start low dose zaida inhibitor given low normal BP. Through [facility] Echo 12/04: EF 38 +/- 5%. Grade I LV diastolic dysfunction. RV normal in size and function. LA mildly dilated. Aorta 3.9cm. RVSP 59 mmHg consistent w moderate pulmonary HTN. (2) Non-ST elevation MD (NSTEMI): PLAN: Pt had ST-elevation MD on 12/02 w total occlusion of LAD. Developed subsequent cardiogenic shock and had sustain VT which required 1 shock. Troponin here was 518 down to 484. Last high-sensitivity trop[facility] at [facility] was 12/03 and was 8758 Suspect type 2 event. Cardiology on consult Already anticoagulated Continue ASA, HIS, clopidogrel metoprolol tartrae PLAN: Plan Chronic conditions: History of DVT/PE, polycythemia vera on warfarin: Patient on warfarin 5 mg daily and will hold it as INR is supratherapeutic 4.4. Had been evaulated by vascular surgery for IVC filter removal (placed in 2021), but they recommended medical optimization beforehand. CKD stage IIIb probably due to cardiology visit: His BUNs/creatinine was elevated 29/1.4 on December 02, 2022. He still 25/1.49. Monitor kidney function electrolytes. Renal ultrasound ordered for tomorrow AM. VTE prophylaxis: Patient already on warfarin as mentioned above. Code: full DC home with cardiology follow up.
[2022-12-23 09:51] VITALS: BP 108/62; PULSE 68; RESP 16; TEMP 36.7; O2SAT 95
[2022-12-23] MEDS: guaiFENesin/D-Methorphan TAB.SR.12H 1 TABLET PO (09:56)
[2022-12-23] MEDS: Aspirin E.C. 81 MG Tablet PO (09:56)
[2022-12-23] MEDS: Folic Acid 1 MG Tablet PO (09:56)
[2022-12-23] MEDS: Clopidogrel Bisulfate 75 MG Tablet PO (09:56)
[2022-12-23 09:57] VITALS: PULSE 68
[2022-12-23] MEDS: Metoprolol Tartrate 25 MG Tablet 12.5 MG PO (09:57)
[2022-12-23] MEDS: Furosemide 40 MG/4 ML Vial IV (09:58)
[2022-12-23] MEDS: 0.9% Saline Lock 10 ML Syringe IV (09:58)
--- NOTE | 2022-12-23 11:25 | CASEMGMT ---
RN ISABELLA Face to Face with patient for initial transition planning/care coordination assessment. RN CM introduced self and role at [facility]. Patient lying in bed, alert and oriented, and son at bedside. Patient willing to participate in assessment and is able to answer all questions appropriately. Care providers, pharmacy, and demographics verified. Patient wishes to discharge home, denies need for home health at this time. Patient states he has no further needs or concerns at this time. CM to follow for discharge planning needs that may arise. PCP: Blayne Specialists: [facility]erred [facility]acy: [facility] Insurance: [employer] Prescription Benefit: none Living Will/HPOA: yes, Lin Lezama LNOK: , sons Living Arrangements: Patient lives with in a 2 story home with bed and bath on first floor, ramp to enter the home. Patient is independent at home. Transportation: driving service DME/HHC: Patient has shower chair and raised toilet at home. No previous HHC or SNF. Disposition Plan: Patient to discharge home with family support and follow-up plans in place. Delores BOUDREAUX, RN, CM
--- NOTE | 2022-12-23 11:44 | PCM.CONS.C ---
Assessment & Plan Assessment/Plan (1) Acute on chronic HFrEF (heart failure with reduced ejection fraction): PLAN: He presents with an acute exacerbation of congestive heart failure. His estimated ejection fraction was noted to be approximately 35 to 40%. The plan at this time will be to continue him on the current beta-sahra ideally he would need to be switched over to carvedilol, and for him to continue with a daily diuretic dose of Lasix 40 mg a day. He should also be on an SONNY inhibitor or ARB and as an outpatient will be considered for an SGLT2 inhibitor. Will try and arrange for an early outpatient visit to optimize his medical therapy. (2) Recent ST elevation myocardial infarction (STEMI): PLAN: Patient is status post ST elevation myocardial infarction within the last 3 weeks. He will continue with guideline directed medical therapy. He has declined formal cardiac rehabilitation. (3) Stented coronary artery: PLAN: He is status post previous angioplasty and stenting of the left anterior descending artery. He does have residual mild disease. At this time he does not need any coronary intervention. Thank you for allowing me to participate in the care of your patient. Please don't hesitate to call if any issues arise. HPI Consult Data Date of Consult: 12/23/22 HPI Narrative HPI Narrative: LANA BROOKE, is a 77 M who presents to the emergency room with shortness of breath. He had presented to the hospital approximately 2 and half weeks ago with chest discomfort was noted to have high-grade lesion in the left anterior descending artery. He had presented with with cardiogenic shock in the ER his blood pressure was low systolic around 90 mmHg. He was taken emergently to the cardiac catheterization lab and underwent complex PCI of the proximal to mid LAD which was heavily calcified. It required the use of a guide liner as well as escalation of the wire and a 2.5 x 22 mm stent was placed with resolution of his symptoms. His left main coronary artery left circumflex artery and right coronary artery had no significant atherosclerosis. He was transferred to a tertiary care center due to his unstable condition. It appears that he was observed today an echocardiogram was performed which was noted to be before between 35 and 40% and was discharged on medication including diuretics which she was asked to take as needed. He presented to the hospital with this and was noted to have EKG findings suggestive of an evolutionary anterior OH as well as elevated natruretic peptide level. Cardiology was called for evaluation. [facility] Medical History Arteriosclerosis of coronary artery in patient with history of myocardial infarction (12/02/22) Cardiogenic shock (12/02/22) Clotting disorder Home Medications aspirin 81 mg tablet,delayed release (Adult Aspirin Regimen) 81 mg PO DAILY 12/22/22 [History Last Taken Unknown] atorvastatin 80 mg tablet 80 mg PO DAILY 12/22/22 [History Last Taken Unknown] clopidogrel 75 mg tablet 75 mg PO DAILY 12/22/22 [History Last Taken Unknown] folic acid 1 mg tablet 1 mg PO DAILY 12/22/22 [History Last Taken Unknown] guaifenesin 1,200 mg tablet, extended release 12 hr (Mucinex) 600 mg PO BID 12/22/22 [History Last Taken Unknown] hydroxyzine HCl 25 mg tablet 25 mg PO Q6H PRN anxiety 12/22/22 [History Last Taken Unknown] metoprolol tartrate 50 mg tablet (Lopressor) 12.5 mg PO BID 12/22/22 [History Last Taken Unknown] warfarin 5 mg tablet 5 mg PO DAILY 12/22/22 [History Last Taken Unknown] Allergy/AdvReac Type Severity Reaction Status Date / Time amoxicillin Allergy Rash Verified 12/22/22 15:44 Surgical History Stented coronary artery (12/02/22) Social History Smoking Status: Never smoker ROS Constitutional Constitutional: Denies fever(s) or weight loss Eyes Eyes: Reports systems reviewed and no addt'l complaints, except as documented ENT HEENT: Reports systems reviewed and no addt'l complaints, except as documented Cardiovascular Cardiovascular: Denies chest pain at rest, chest pain with activity, dyspnea at rest, dyspnea on exertion, edema, palpitations or paroxysmal nocturnal dyspnea Respiratory/Chest Respiratory/Chest: Reports dyspnea on exertion and shortness of breath with exertion; Denies productive cough or shortness of breath at rest Gastrointestinal Gastrointestinal: Denies change in bowel habits, nausea, vomiting or weight changes Genitourinary Genitourinary: Denies difficulty urinating Musculoskeletal Musculoskeletal: Denies joint stiffness or muscle weakness Integumentary Integumentary: Denies lesions Neurologic Neurologic: Denies dizziness or syncope Psychiatric Psychiatric: Denies anxiety Endocrine Endocrinology: Denies excessive sweating or fatigue Hematologic/Lymphatic Hematologic/Lymphatic: Denies anemia Allergic/Immunologic Allergic/Immunologic: Denies seasonal rhinorrhea Physical Exam Const alert, oriented x3 and no apparent distress General Appearance: cooperative HEENT hearing grossly normal bilaterally Head and Scalp: atraumatic Eyes EOMs intact bilaterally Neck General: normal visual inspection Chest inspection of chest normal and palpation of chest normal Resp normal respiratory effort Auscultation: clear to auscultation bilaterally Cardio regular rate, regular rhythm, S1 normal heart sound and S2 normal heart sound Jugular Venous Distention: JVD GI normal to inspection, nondistended, normoactive bowel sounds Extremity normal capillary refill and no pedal edema Peripheral Pulses: Yes pulses 2+ throughout and femoral pulses present Skin no rashes or lesions noted Neuro oriented x3 and CN's II-XII intact bilaterally Psych Appearance: grossly normal and appropriate Risk Stratification Risk Stratification Applicable: No Objective Data Vital Signs: Vital Signs Temp Pulse Resp BP Pulse Ox O2 Del Method 98.1 F 68 16 108/62 95 Room Air 12/23/22 09:51 12/23/22 09:57 12/23/22 09:51 12/23/22 09:51 12/23/22 09:51 12/23/22 09:51 Oxygen Delivery Method Room Air Weight: 162 lb 0.636 oz Body Mass Index (BMI) 23.9 Intake & Output: Intake and Output for Last 24 Hours 12/21/22 12/22/22 12/23/22 23:59 23:59 23:59 Intake Total 360 / 360 Output Total 1450 / 1450 Balance -1090 / -1090 Lab / Micro Data 12/23/22 05:25 12/23/22 05:25 Labs: Laboratory Results - last 24 hr 12/22/22 16:11: WBC 22.1 H, RBC 6.65 H, Hgb 11.7 L, Hct 41.2, MCV 62.0 L, MCH 17.6 L, MCHC 28.4 L, RDW Std Deviation 51.1 H, RDW Coeff of Orly 25.2 H, Plt Count 509 H, MPV TNP, Immature Gran % (Auto) 0.900, Neut % (Auto) 88.3 H, Lymph % (Auto) 5.4 L, [place] % (Auto) 2.7, Eos % (Auto) 1.4, Baso % (Auto) 1.3 H, Absolute Neuts (auto) 19.5 H, Absolute Lymphs (auto) 1.19, Nucleated RBC % 0, Differential Comment SCANNED, PT 43.1 H, INR 4.4 H*, Sodium 138, Potassium 4.4, Chloride 106, Carbon Dioxide 28.0, Anion Gap 4 L, BUN 25 H, Creatinine 1.49 H, Estim Creat Clear Calc 41.51, Est GFR (MDRD) Af Amer 58 L, Est GFR (MDRD) Non-Af 48 L, BUN/Creatinine Ratio 16.8, Glucose 97, Calcium 8.8, Magnesium 2.0, Troponin I High Sens 491 H*, B-Natriuretic Peptide 947.8 H 12/22/22 19:35: Troponin I High Sens 518 H* 12/22/22 23:50: Troponin I High Sens 484 H* 12/23/22 05:25: WBC 21.7 H, RBC 6.49 H, Hgb 11.5 L, Hct 39.3 L, MCV 60.6 L, MCH 17.7 L, MCHC 29.3 L, RDW Std Deviation 50.0 H, RDW Coeff of Orly 25.2 H, Plt Count 501 H, MPV TNP, Immature Gran % (Auto) 0.800, Neut % (Auto) 88.2 H, Lymph % (Auto) 5.6 L, [place] % (Auto) 3.2, Eos % (Auto) 1.1, Baso % (Auto) 1.1 H, Absolute Neuts (auto) 19.2 H, Absolute Lymphs (auto) 1.21, Nucleated RBC % 0, Anisocytosis 2+, Sodium 139, Potassium 3.7, Chloride 106, Carbon Dioxide 28.0, Anion Gap 5, BUN 26 H, Creatinine 1.36 H, Estim Creat Clear Calc 44.04, Est GFR (MDRD) Af Amer 65, Est GFR (MDRD) Non-Af 54 L, BUN/Creatinine Ratio 19.1, Glucose 92, Calcium 8.7, Phosphorus 3.3, Triglycerides 47, Cholesterol 56, LDL Cholesterol 22, VLDL Cholesterol 9, HDL Cholesterol 25 L, TSH 7.30 H Cardiology Labs/Tests 12/22/22 16:11: WBC 22.1 H, RBC 6.65 H, Hgb 11.7 L, Hct 41.2, MCV 62.0 L, MCH 17.6 L, MCHC 28.4 L, Plt Count 509 H, MPV TNP, Immature Gran % (Auto) 0.900, Neut % (Auto) 88.3 H, Lymph % (Auto) 5.4 L, [place] % (Auto) 2.7, Eos % (Auto) 1.4, Baso % (Auto) 1.3 H, Absolute Neuts (auto) 19.5 H, Nucleated RBC % 0, PT 43.1 H, INR 4.4 H*, Sodium 138, Potassium 4.4, Chloride 106, Carbon Dioxide 28.0, Anion Gap 4 L, BUN 25 H, Creatinine 1.49 H, Est GFR (MDRD) Af Amer 58 L, Est GFR (MDRD) Non-Af 48 L, BUN/Creatinine Ratio 16.8, Glucose 97, Calcium 8.8, Magnesium 2.0, B-Natriuretic Peptide 947.8 H 12/23/22 05:25: WBC 21.7 H, RBC 6.49 H, Hgb 11.5 L, Hct 39.3 L, MCV 60.6 L, MCH 17.7 L, MCHC 29.3 L, Plt Count 501 H, MPV TNP, Immature Gran % (Auto) 0.800, Neut % (Auto) 88.2 H, Lymph % (Auto) 5.6 L, [place] % (Auto) 3.2, Eos % (Auto) 1.1, Baso % (Auto) 1.1 H, Absolute Neuts (auto) 19.2 H, Nucleated RBC % 0, Sodium 139, Potassium 3.7, Chloride 106, Carbon Dioxide 28.0, Anion Gap 5, BUN 26 H, Creatinine 1.36 H, Est GFR (MDRD) Af Amer 65, Est GFR (MDRD) Non-Af 54 L, BUN/Creatinine Ratio 19.1, Glucose 92, Calcium 8.7, Phosphorus 3.3, Triglycerides 47, Cholesterol 56, LDL Cholesterol 22, VLDL Cholesterol 9, HDL Cholesterol 25 L Rhythm: EKG: ECHO: Stress Test: Cardiac Cath: PCI: CT Surgery: Holter monitor: EPS: PPM: CXR: Chest CT Scan: Radiography Diagnostic Testing: Radiology Impression Chest X-Ray 12/22/22 16:35 IMPRESSION: There are bilateral pleural effusions. There are bilateral infiltrates. Electronically Signed: Anthony Caputo MD at 17:08 EDT ,
--- NOTE | 2022-12-23 12:47 | PCM.DC.SUM ---
Providers Date of Admission: 12/22/22 Primary Care Physician: Dr. Isaias Cisneros MD Consultations 12/22/22 19:56 Consult: Cardiology Routine Consulting Provider: Saeed Ring Reason for Consult: CHF exacerbation EMERGENT Consult: No MD Notified: Yes Date Notified: 12/22/22 Time Notified: 19:56 Method of Notification: ED Physician Initiated Reason For Visit: CHF, ELEVATED TROPONIN Diagnosis Discharge Diagnosis (1) Acute on chronic HFrEF (heart failure with reduced ejection fraction): Status: Chronic Code(s): I50.23 - Acute on chronic systolic (congestive) heart failure Plan: Acute on chronic HFrEF Patient is started on IV Lasix 40 mg twice daily. Heart failure core measures including intake and output, fluid restriction less than 1500 mL, daily weight monitoring, kidney and electrolytes monitoring. Cardiology consult. DW Dr. Ring, he recommends furosemide 40 daily. Will start low dose sonny inhibitor given low normal BP. Through [facility] Echo 12/04: EF 38 +/- 5%. Grade I LV diastolic dysfunction. RV normal in size and function. LA mildly dilated. Aorta 3.9cm. RVSP 59 mmHg consistent w moderate pulmonary HTN. (2) Non-ST elevation UT (NSTEMI): Status: Acute Code(s): I21.4 - Non-ST elevation (NSTEMI) myocardial infarction Plan: Pt had ST-elevation UT on 12/02 w total occlusion of LAD. Developed subsequent cardiogenic shock and had sustain VT which required 1 shock. Troponin here was 518 down to 484. Last high-sensitivity troponin at [facility] was 12/03 and was 8758 Suspect type 2 event. Follow up with cardiology. Declined cardiac rehab. Already anticoagulated Continue ASA, HIS, clopidogrel metoprolol tartrae Plan Chronic conditions: History of DVT/PE, polycythemia vera on warfarin: Patient on warfarin 5 mg daily and will hold it as INR is supratherapeutic 4.4. Had been evaulated by vascular surgery for IVC filter removal (placed in 2021), but they recommended medical optimization beforehand. CKD stage IIIb probably due to cardiology visit: His BUNs/creatinine was elevated 29/1.4 on December 02, 2022. He still 25/1.49. Monitor kidney function electrolytes. Renal ultrasound ordered for tomorrow AM. VTE prophylaxis: Patient already on warfarin as mentioned above. Code: full DC home with cardiology follow up. Medications at Discharge Home Medications aspirin 81 mg tablet,delayed release (Adult Aspirin Regimen) 81 mg PO DAILY 12/22/22 atorvastatin 80 mg tablet 80 mg PO DAILY 12/22/22 clopidogrel 75 mg tablet 75 mg PO DAILY 12/22/22 folic acid 1 mg tablet 1 mg PO DAILY 12/22/22 hydroxyzine HCl 25 mg tablet 25 mg PO Q6H PRN anxiety 12/22/22 metoprolol tartrate 50 mg tablet (Lopressor) 12.5 mg PO BID 12/22/22 warfarin 5 mg tablet 5 mg PO DAILY 12/22/22 furosemide 40 mg tablet 40 mg PO DAILY #30 tabs 12/23/22 lisinopril 5 mg tablet 5 mg PO DAILY #30 tabs 12/23/22 Hospital Course Operations None Procedures None Summary of Care Provided Minutes Spent on Discharge: 32 Weight / BMI Weight Weight: 73.5 kg Body Mass Index (BMI) 23.9 ABG / Lab / Microbiology Data 12/23/22 05:25 12/23/22 05:25 Laboratory: Laboratory Results - last 24 hr 12/22/22 16:11: WBC 22.1 H, RBC 6.65 H, Hgb 11.7 L, Hct 41.2, MCV 62.0 L, MCH 17.6 L, MCHC 28.4 L, RDW Std Deviation 51.1 H, RDW Coeff of Orly 25.2 H, Plt Count 509 H, MPV TNP, Immature Gran % (Auto) 0.900, Neut % (Auto) 88.3 H, Lymph % (Auto) 5.4 L, [place] % (Auto) 2.7, Eos % (Auto) 1.4, Baso % (Auto) 1.3 H, Absolute Neuts (auto) 19.5 H, Absolute Lymphs (auto) 1.19, Nucleated RBC % 0, Differential Comment SCANNED, PT 43.1 H, INR 4.4 H*, Sodium 138, Potassium 4.4, Chloride 106, Carbon Dioxide 28.0, Anion Gap 4 L, BUN 25 H, Creatinine 1.49 H, Estim Creat Clear Calc 41.51, Est GFR (MDRD) Af Amer 58 L, Est GFR (MDRD) Non-Af 48 L, BUN/Creatinine Ratio 16.8, Glucose 97, Calcium 8.8, Magnesium 2.0, Troponin I High Sens 491 H*, B-Natriuretic Peptide 947.8 H 12/22/22 19:35: Troponin I High Sens 518 H* 12/22/22 23:50: Troponin I High Sens 484 H* 12/23/22 05:25: WBC 21.7 H, RBC 6.49 H, Hgb 11.5 L, Hct 39.3 L, MCV 60.6 L, MCH 17.7 L, MCHC 29.3 L, RDW Std Deviation 50.0 H, RDW Coeff of Orly 25.2 H, Plt Count 501 H, MPV TNP, Immature Gran % (Auto) 0.800, Neut % (Auto) 88.2 H, Lymph % (Auto) 5.6 L, [place] % (Auto) 3.2, Eos % (Auto) 1.1, Baso % (Auto) 1.1 H, Absolute Neuts (auto) 19.2 H, Absolute Lymphs (auto) 1.21, Nucleated RBC % 0, Anisocytosis 2+, Sodium 139, Potassium 3.7, Chloride 106, Carbon Dioxide 28.0, Anion Gap 5, BUN 26 H, Creatinine 1.36 H, Estim Creat Clear Calc 44.04, Est GFR (MDRD) Af Amer 65, Est GFR (MDRD) Non-Af 54 L, BUN/Creatinine Ratio 19.1, Glucose 92, Calcium 8.7, Phosphorus 3.3, Triglycerides 47, Cholesterol 56, LDL Cholesterol 22, VLDL Cholesterol 9, HDL Cholesterol 25 L, TSH 7.30 H Radiography Diagnostic Testing: Radiology Impression Chest X-Ray 12/22/22 16:35 IMPRESSION: There are bilateral pleural effusions. There are bilateral infiltrates. Electronically Signed: Anthony Caputo MD at 17:08 EDT Reading Location ID and State: [facility] / [place] , Service support , D/C Instructions Discharge Diet: Low fat / Low cholesterol, 8 Cup Fluid Restriction and 2000 mg Sodium Diet Call your doctor if you observe: Shortness of breath, Swelling in the ankles and Chest pain Meaningful Use Info Meaningful Use Diagnoses (Choose all that apply): CHF CHF SONNY/ARB ordered at discharge?: Yes Documented LVEF (%): 38 Discharge Plan Admission Admit Date/Time: 12/22/22 18:08 Primary Reason for Your Visit: congestive heart failure exacerbation. Attending Provider: Sagar Montano Primary Care Provider: Isaias Cisneros Consulting Providers: Chuck Martin; Saeed Ring Instructions Additional Instructions / Restrictions: You presented with a congestive heart failure exacerbation. You responded well with IV furosemide (Lasix). You will be discharge with furosemide pills. Please follow up with cardiology. Your INR was high. You will need to hold your warfarin (Coumadin) for the next 2 days. Please follow up with your primary care doctor for monitoring your INR. Discharge Orders/Prescriptions Prescriptions: New furosemide 40 mg tablet 40 mg PO DAILY Qty: 30 0RF lisinopril 5 mg tablet 5 mg PO DAILY Qty: 30 0RF Continued atorvastatin 80 mg tablet 80 mg PO DAILY Patient Comments: TAKE 1 TABLET BY MOUTH ONCE DAILY clopidogrel 75 mg tablet 75 mg PO DAILY aspirin [Adult Aspirin Regimen] 81 mg tablet,delayed release (DR/EC) 81 mg PO DAILY hydroxyzine HCl 25 mg tablet 25 mg PO Q6H PRN (Reason: anxiety) metoprolol tartrate [Lopressor] 50 mg tablet 12.5 mg PO BID folic acid 1 mg tablet 1 mg PO DAILY Patient Comments: TAKE 1 TABLET BY MOUTH EVERY DAY Held warfarin 5 mg tablet 5 mg PO DAILY Hold Instructions: Resume on 12/25/22. Patient Comments: TAKE ONE TABLET BY MOUTH DAILY DIRECTED Discontinued Mucinex 1,200 mg tablet extended release 12hr 600 mg PO BID Referrals / Follow Up: [facility] [Provider Group] - Within 1 Month Isaias Cisneros MD [Primary Care Provider] - Within 2 Weeks Disposition Disposition (needs filled in before D/C Order can be placed): Home, Self Care Charges/Coding Visit Charges Inpatient E&M: 48135 Disch Hosp >30min
--- NOTE | 2022-12-23 14:28 | NURSING ---
After calling for ride home, pt's family came out to the nurses station. It was requested that new prescriptions be sent to [facility] instead of [facility] so they could pick them up on the way home. This RN called [facility] pharmacy and explained the situation; [facility] stated they will call [facility] pharmacy and take of switching the medication so patient can get prescription on the way home. Pt and family notified that [facility] pharmacy stated that they will fill the prescription and would be ready in about a half hour. Family acknowledged that they would stop at [facility] and picker / packer prescription on their way home.
== END 2022-12-23 15:06 | disposition home or self-care (01) | DRG 282 ==
LOC: ED 17:19 → PCU 19:00
PROVIDERS: Admitting Provider Internal Medicine; Emergency Provider Emergency Medicine; PCP Family Medicine
DX: I50.23 Acute on chronic systolic (congestive) heart failure (principal); I21.A1 Myocardial infarction type 2; Z79.01 Long term (current) use of anticoagulants; N18.32 Chronic kidney disease, stage 3b; D45 Polycythemia vera; I25.10 Atherosclerotic heart disease of native coronary artery without angina pectoris; Z95.5 Presence of coronary angioplasty implant and graft; Z79.02 Long term (current) use of antithrombotics/antiplatelets; Z79.82 Long term (current) use of aspirin; Z79.899 Other long term (current) drug therapy; Z86.711 Personal history of pulmonary embolism; Z86.718 Personal history of other venous thrombosis and embolism
CPT/HCPCS: 36415; 71046; 80048; 80061; 83735; 83880; 84100; 84443; 84484; 85025; 85610; 93005; 94640; 97802; 99285; A4216; J1940

== ENCOUNTER → 2023-04-27 | Outpatient (CLI) | payer OTHER, SELFPAY ==
[2023-04-27 14:32] LABS: Hemoglobin 11.8 g/dL (13.0-16.5); Mean Corp Hgb Conc 28.1 g/dL (32-36); Mean Corpuscular Hgb 17.1 pg (27.0-32.0); POSITIVE MORPHOLOGY YES; Platelet Count 351 K/mm3 (150-450); RBC Distribution Width CV 24.7 % (11.6-14.6); RBC Distribution Width SD 48.2 fl (35.1-43.9); Red Blood Count 6.89 M/mm3 (4.6-6.2); White Blood Count 24.1 K/mm3 (4.4-11.0)
[2023-04-27 14:33] LABS: Scan Indicated on CBC? Y/N YES- FLAGS NOTED
[2023-04-27 14:49] LABS: Differential Comment SCANNED
== END | disposition home or self-care (01) ==
PROVIDERS: PCP Family Medicine; Referring Provider Nurse Practitioner Family; Visit Provider Nurse Practitioner Family
DX: R53.1 Weakness (principal); D68.32 Hemorrhagic disorder due to extrinsic circulating anticoagulants; T45.515A Adverse effect of anticoagulants, initial encounter
CPT/HCPCS: 36415; 85027

== ENCOUNTER → 2023-05-05 | Outpatient (CLI) | payer OTHER, SELFPAY | END | disposition home or self-care (01) | LOC: LABSPEC 09:04 | PROVIDERS: PCP Family Medicine; Referring Provider Nurse Practitioner Family; Visit Provider Nurse Practitioner Family | DX: D68.32 Hemorrhagic disorder due to extrinsic circulating anticoagulants (principal); R53.1 Weakness; T45.515A Adverse effect of anticoagulants, initial encounter | CPT/HCPCS: 82274 ==

== ENCOUNTER → 2024-04-10 | Outpatient (CLI) | payer SELFPAY ==
[2024-04-10 15:01] LABS: T4 Free Direct 0.83 ng/dL (0.76-1.46)
== END | disposition home or self-care (01) ==
LOC: LAB 13:52
PROVIDERS: PCP Family Medicine; Referring Provider Nurse Practitioner Family; Visit Provider Nurse Practitioner Family
DX: R53.1 Weakness (principal); Z95.5 Presence of coronary angioplasty implant and graft
CPT/HCPCS: 36415; 84439; 84443

== ENCOUNTER → 2024-05-15 | Outpatient (CLI) | payer SELFPAY ==
--- NOTE | 2024-05-15 12:56 | ECHOCS_ITS ---
Reason For Study: CHF Procedure This was a 2D Doppler, Color Flow transthoracic echocardiogram. The study was technically difficult. Contrast injection was performed. Exam performed in department. Left Ventricle Moderately dilated left ventricle. The left ventricular ejection fraction is 20 %. Severe segmental systolic dysfunction (see wall motion). Adrian : Akinetic. Mid-Anterior : Akinetic. Mid-anteroseptal : Akinetic. Anterio-Basal: Normal. Basal anteroseptal: Mildly hypokinetic. Lateral-Basal: Normal. Posterior-Basal: Normal. Infero-Basal: Normal. The rest of the wall segments are hypokinetic. Right Ventricle Normal RV size. Normal systolic function. Atria The left atrium is mildly enlarged. Normal right atrium. Mitral Valve Normal mitral valve. Tricuspid Valve Normal tricuspid valve. Aortic Valve Trisinus/trileaflet aortic valve. Mild focal aortic valve calcification. Great Vessels Normal aortic root. The pulmonary artery is normal size. Inferior vena cava collapse with respiration. Pericardium/Pleural No pericardial effusion. Medication 22 gauge I.V. with prn adaptor inserted into right arm. Diluted definity 2.5ml given slow IV push to enhance endocardial definition. MMode/2D Measurements & Calculations LVIDd: 6.0 cm IVSd: 1.2 cm LVOT diam: 2.0 cm LVIDs: 5.2 cm LVPWd: 1.1 cm LVOT area: 3.0 cm2 FS: 13.6 % Ao root diam: 3.2 cm LAV(MOD-bp): 65.0 ml LVAd ap4: 52.5 cm2 LAV(MOD-bp) Indexed: 35.8 ml/m2 LVLd ap4: 8.8 cm LAV(MOD-sp2): 67.5 ml EDV(MOD-sp4): 259.4 ml LAV(MOD-sp4): 62.0 ml EDV(sp4-el): 266.7 ml LVAs ap4: 43.2 cm2 LVLs ap4: 8.4 cm ESV(MOD-sp4): 184.6 ml ESV(sp4-el): 188.5 ml EF(MOD-sp4): 28.8 % EF(sp4-el): 29.3 % SV(MOD-sp4): 74.8 ml SV(sp4-el): 78.1 ml LA A4 area: 20.9 cm2 SI(MOD-sp4): 41.2 ml/m2 LA dimension(2D): 4.0 cm RA A4 area: 16.6 cm2 Time Measurements MV dec time: 0.16 sec Doppler Measurements & Calculations MV E max ned: 73.2 cm/sec Lat Peak E' Ned: 6.6 cm/sec Med Peak E' Ned: 4.8 cm/sec MV A max ned: 54.8 cm/sec E/E' lat: 11.0 E/E' med: 15.2 MV E/A: 1.3 MV V2 max: 76.3 cm/sec Ao V2 max: 137.0 cm/sec MV max P.3 mmHg MV dec slope: 461.8 cm/sec2 Ao max P.5 mmHg MV V2 mean: 53.6 cm/sec Ao V2 mean: 97.8 cm/sec MV mean P.3 mmHg Ao mean P.4 mmHg MV V2 VTI: 26.8 cm Ao V2 VTI: 31.9 cm AV (velocity ratio): 0.93 MVA(VTI): 3.3 cm2 MIKE(I,D): 2.8 cm2 MIKE(V,D): 3.0 cm2 AI max ned: 407.9 cm/sec LV V1 max: 134.7 cm/sec SV(LVOT): 89.7 ml AI max P.6 mmHg LV V1 max P.3 mmHg LV V1 mean P.1 mmHg AI dec slope: 341.4 cm/sec2 LV V1 mean: 93.6 cm/sec AI P1/2t: 349.9 msec LV V1 VTI: 29.7 cm PA V2 max: 81.7 cm/sec PA V2 mean: 64.2 cm/sec ECHO/Echo Complete W/ Contrast Interpretation Summary Moderately dilated left ventricle. The left ventricular ejection fraction is 20 %. Severe segmental systolic dysfunction (see wall motion). Contrast injection was performed. Compared to previous study, the left ventricu lar systolic function has worsened.. Ordering Physician: Tapan Godfrey Referring Physician: Tapan Godfrey Performed By: Izzy Clayton RCS
== END | disposition home or self-care (01) ==
LOC: CVS 12:51
PROVIDERS: PCP Family Medicine; Referring Provider Nurse Practitioner Family; Visit Provider Nurse Practitioner Family
DX: I25.5 Ischemic cardiomyopathy (principal)
CPT/HCPCS: 93306; Q9957; A4216; C8929

== ENCOUNTER → 2024-05-27 | Outpatient (CLI) | payer SELFPAY, OTHER ==
--- NOTE | 2024-05-27 17:14 | STRESSREP_ITS ---
Stress Test Report Pharmacologic myocardial perfusion stress test. 79-year-old man with a history of coronary artery disease and reduced EF Resting EKG demonstrates sinus rhythm with a rate of 64 bpm. Poor R wave progression is noted. Resting blood pressure is 122/68 mmHg. 0.4 mg of regadenoson was infused per usual protocol followed by rapid intravenous saline flush injection. Continuous EKG monitoring was performed. The maximum heart rate was 86 bpm which was 61% of max impacted heart rate the maximum workload was 1 metabolic equivalent. At rest there were no ST or T wave changes noted to suggest ischemia and at peak infusion nonspecific ST changes were noted which did not meet the criteria for ischemia. No clinical angina is noted. The fi nal blood pressure was 118/60 mmHg. Myocardial perfusion protocol. 11.3 mCi of technetium 99m sestamibi was injected at rest. 0.4 mg of regadenoson was infused per usual protocol. At peak infusion 35.8 mCi of technetium 99m sestamibi was injected stress images were obtained stress and rest images were reconstructed and compared in the short axis vertical long and horizontal long axis. Gated images were also obtained. Perfusion SPECT analysis: Review of the stress images demonstrate a large defect involving the anterior wall apex and anteroseptal wall. The rest of the varma appear to have normal perfusion. The resting images demonstrated a similar pattern. The above is suggestive of a previous extensive anterior, septal, anterior apical infarct. No reversibility is noted suggest ischemia. Gated SPECT analysis: The gated ejection fraction is 25%. Conclusion: pharmacologic myocardial perfusion stress test with no evidence of ischemia. Reduced ejection fraction. Ischemic cardiomyopathy Extensive anteroseptal apical infarct present
== END | disposition home or self-care (01) ==
PROVIDERS: PCP Family Medicine; Referring Provider Nurse Practitioner Family; Visit Provider Nurse Practitioner Family
DX: I25.10 Atherosclerotic heart disease of native coronary artery without angina pectoris (principal); I25.5 Ischemic cardiomyopathy; I25.2 Old myocardial infarction; Z95.5 Presence of coronary angioplasty implant and graft
CPT/HCPCS: 78452; 93017; A9500; A4216; J2785

== ENCOUNTER → 2024-10-20 | Outpatient (CLI) | payer OTHER, SELFPAY ==
[2024-10-20 13:53] LABS: Absolute Lymphocyte Count 0.86 X10^3/uL (0.83-4.51); Absolute Neutrophil Count 20.6 X10^3/uL (2.0-7.7); Basophil# 0.29 X10^3/uL; Basophil% 1.3 % (0-1); Eosinophil# 0.39 X10^3/uL; Eosinophils% 1.7 % (0-5); Hematocrit 43.9 % (40-54); Hemoglobin 12.5 g/dL (13.0-16.5); Lymphocyte # 0.86 X10^3/ul (0.83-4.51); Lymphocyte % 3.7 % (19-41); Mean Corp Hgb Conc 28.5 g/dL (32-36); Mean Corpuscular Hgb 17.5 pg (27.0-32.0); Mean Corpuscular Volume 61.6 fL (80-94); Monocyte# 0.74 X10^3/uL; Monocyte% 3.2 % (0-10); NRBC Flagged by Analyzer 0 % (0-5); Neutrophil # 20.64 X10^3/uL (2.7-7.7); Neutrophil % 89.5 % (47-70); POSITIVE DIFFERENTIAL YES; POSITIVE MORPHOLOGY YES; Platelet Count 412 K/mm3 (150-450); RBC Distribution Width CV 24.2 % (11.6-14.6); RBC Distribution Width SD 46.1 fl (35.1-43.9); Red Blood Count 7.13 M/mm3 (4.6-6.2); White Blood Count 23.1 K/mm3 (4.4-11.0)
[2024-10-20 14:00] LABS: Differential Indicated SCAN CRITERIA MET
[2024-10-20 14:28] LABS: ALB/GLOB Ratio 1.3 RATIO (0.9-2.4); AST(SGOT) 21 U/L (<=37); Alanine Aminotransfer ALT/SGPT 14 U/L (<=46); Albumin, Serum 3.8 g/dL (3.4-4.8); Alkaline Phosphatase 110 U/L (40-129); Anion Gap 11 (5-15); BUN 24 mg/dL (4-19); BUN/Creat Ratio 20.4 RATIO (10-20); Carbon Dioxide 22.7 mmol/L (21.0-32.0); Chloride 105 mmol/L (98-108); Creatinine, Serum 1.19 mg/dL (0.70-1.20); EST Glomerular Filtration Rate 61 (>60); Glucose 76 mg/dL (70-99); Potassium 4.3 mmol/L (3.3-5.1); Pro- Brain NATRIURETIC PEPTIDE 8878 pg/mL (<=1800); Protein, Total 6.8 g/dL (5.9-8.4); Sodium Level 139 mmol/L (133-145); Total Bilirubin 1.49 mg/dL (0.00-1.30)
[2024-10-20 14:33] LABS: Anisocytosis 2+
== END | disposition home or self-care (01) ==
PROVIDERS: PCP Family Medicine; Referring Provider Nurse Practitioner Family; Visit Provider Nurse Practitioner Family
DX: I25.5 Ischemic cardiomyopathy (principal); Z95.5 Presence of coronary angioplasty implant and graft
CPT/HCPCS: 36415; 80053; 83880; 85025

== ENCOUNTER → 2025-03-10 | Outpatient (CLI) | payer SELFPAY, OTHER ==
--- NOTE | 2025-03-10 15:06 | ECHOCS_ITS ---
Reason For Study Reason For Study: CHF Procedure This was a 2D Doppler, Color Flow transthoracic echocardiogram. Contrast injection was performed. Exam performed in department. Left Ventricle Severely dilated left ventricle. The left ventricular ejection fraction is 20 %. Stage 2 diastolic dysfunction. Severe segmental systolic dysfunction (see wall motion). There is severe global hypokinesis of the left ventricle. [place] : Akinetic. Mid-Anterior : Akinetic. Anterior [place] : Akinetic. Anterio-Basal: Normal. Infero-Basal: Normal. Right Ventricle Normal RV size. Normal systolic function. Atria The left atrium is mildly enlarged. Normal right atrium. Mitral Valve Normal mitral valve. Mild (1+) eccentric mitral valve insufficiency. Tricuspid Valve Normal tricuspid valve. Aortic Valve Trisinus/trileaflet aortic valve. Pulmonic Valve Normal pulmonic valve. Great Vessels Normal aortic root. The pulmonary artery is normal size. Inferior vena cava collapse with respiration. Pericardium/Pleural No pericardial effusion. Moderate size left pleural effusion. Medication Diluted definity 2ml given slow IV push to enhance endocardial definition. MMode/2D Measurements & Calculations LVIDd: 6.8 cm IVSd: 0.97 cm LVOT diam: 2.0 cm LVIDs: 6.1 cm LVPWd: 1.0 cm RVDd: 3.8 cm FS: 10.2 % LVOT area: 3.2 cm2 Ao root diam: 3.8 cm LAV(MOD-bp): 73.9 ml LVAd ap4: 50.7 cm2 ACS: 1.2 cm LAV(MOD-bp) Indexed: 41.2 ml/m2 LVLd ap4: 8.1 cm LAV(MOD-sp2): 78.1 ml EDV(MOD-sp4): 260.3 ml LAV(MOD-sp4): 66.1 ml EDV(sp4-el): 267.5 ml LVAs ap4: 42.2 cm2 LVLs ap4: 7.5 cm ESV(MOD-sp4): 194.3 ml ESV(sp4-el): 201.2 ml EF(MOD-sp4): 25.4 % EF(sp4-el): 24.8 % LVAd ap2: 49.8 cm2 SV(MOD-sp4): 66.1 ml SV(MOD-sp2): 52.7 ml LVLd ap2: 8.3 cm SI(MOD-sp4): 36.8 ml/m2 SI(MOD-sp2): 29.4 ml/m2 EDV(MOD-sp2): 245.6 ml EDV(sp2-el): 254.3 ml LVAs ap2: 42.3 cm2 LVLs ap2: 7.7 cm ESV(MOD-sp2): 192.9 ml ESV(sp2-el): 197.0 ml EF(MOD-sp2): 21.5 % SV(sp4-el): 66.3 ml LA dimension(2D): 4.7 cm LA A4 area: 21.9 cm2 RA A4 area: 18.4 cm2 TAPSE: 2.4 cm Time Measurements MV dec time: 0.20 sec Doppler Measurements & Calculations MV E max ned: 63.7 cm/sec Lat Peak E' Ned: 2.8 cm/sec Med Peak E' Ned: 2.6 cm/sec MV A max ned: 43.3 cm/sec E/E' lat: 22.8 E/E' med: 24.5 MV E/A: 1.5 Ao V2 max: 163.1 cm/sec AI max ned: 381.5 cm/sec MV dec slope: 324.6 cm/sec2 Ao max P.7 mmHg AI max P.2 mmHg Ao V2 mean: 118.1 cm/sec Ao mean P.4 mmHg AI dec slope: 214.8 cm/sec2 Ao V2 VTI: 38.7 cm AI P1/2t: 520.2 msec AV (velocity ratio): 0.53 MIKE(I,D): 1.7 cm2 MIKE(V,D): 1.8 cm2 LV V1 max: 90.5 cm/sec SV(LVOT): 65.0 ml PA V2 max: 64.5 cm/sec LV V1 max P.3 mmHg LV V1 mean P.8 mmHg LV V1 mean: 61.6 cm/sec LV V1 VTI: 20.4 cm ECHO/Echo Complete W/ Contrast Interpretation Summary The left ventricular ejection fraction is 20 %. Stage 2 diastolic dysfunction. Severely dilated left ventricle. Severe segmental systolic dysfunction (see wall motion). Contrast injection was performed. Ordering Physician: Tapan Godfrey Referring Physician: Isaias Cisneros Performed By: Naomi Godfrey, CHANCE, RVT
== END | disposition home or self-care (01) ==
LOC: CVS 15:04
PROVIDERS: PCP Family Medicine; Referring Provider Nurse Practitioner Family; Visit Provider Nurse Practitioner Family
DX: I25.5 Ischemic cardiomyopathy (principal)
CPT/HCPCS: 93306; Q9957; A4216; C8929